=== PATIENT | female | born 1970 | race Caucasian/White ===

== ENCOUNTER 2016-06-02 14:25 | Emergency (ER) | payer OTHER | END 2016-06-02 19:20 | disposition left against medical advice (07) | LOC: FER 14:25 | DX: M54.6 Pain in thoracic spine (principal); Z53.8 Procedure and treatment not carried out for other reasons ==

== ENCOUNTER 2016-06-04 19:36 | Emergency (ER) | payer OTHER ==
[2016-06-04 21:59] LABS: BILIRUBIN NEGATIVE (NEGATIVE); BLOOD 3+ Ery/uL (NEGATIVE); GLUCOSE (U) NORMAL (NORMAL); KETONE (U) 1+ (SMALL) mg/dL (NEGATIVE); LEUKOCYTES 2+ Leu/uL (NEGATIVE); NITRITE POSITIVE (NEGATIVE); PROTEIN 3+ mg/dL (NEGATIVE); SPECIFIC GRAVITY >=1.030 (1.001-1.030)
[2016-06-04 22:00] LABS: CLARITY TURBID (CLEAR); COLOR RED (YELLOW)
[2016-06-04 22:06] LABS: BACTERIA 4+; CALCIUM OXALATE CRYSTALS LARGE; SQUAMOUS EPITHELIAL CELLS 20-50; URINARY RBC TNTC
[2016-06-04 22:07] LABS: URINARY WBC 20-50
== END 2016-06-04 23:38 | disposition home or self-care (01) ==
LOC: FER 19:36
PROVIDERS: Emergency Medicine Emergency Medical Services
DX: N30.00 Acute cystitis without hematuria (principal); I10 Essential (primary) hypertension; F32.9 Major depressive disorder, single episode, unspecified; F17.290 Nicotine dependence, other tobacco product, uncomplicated; Z79.899 Other long term (current) drug therapy; Z88.0 Allergy status to penicillin; Z88.2 Allergy status to sulfonamides
CPT/HCPCS: 81001; 87077; 87088; 87186; 87210; 99284

== ENCOUNTER 2020-12-23 23:41 | Emergency (ER) | payer OTHER ==
[2020-12-24 00:32] LABS: BILIRUBIN NEGATIVE (NEGATIVE); BLOOD TRACE-INTACT Ery/uL (NEGATIVE); COLOR YELLOW (YELLOW); GLUCOSE (U) NORMAL (NORMAL); LEUKOCYTES 1+ Leu/uL (NEGATIVE); NITRITE POSITIVE (NEGATIVE); PROTEIN NEGATIVE (NEGATIVE); UROBILINOGEN 0.2 mg/dL (0.2-1.0)
[2020-12-24 00:35] LABS: CLARITY HAZY (CLEAR)
[2020-12-24 00:37] LABS: BACTERIA 4+; URINARY WBC 20-50
[2020-12-24 01:35] LABS: HCT 42.9 % (37.0-47.0); HGB 14.4 g/dl (12.5-16.0); MCH 27.7 pg (25.0-31.0); MCHC 33.6 g/dL (32.0-36.0); MCV 82.5 fL (78.0-100.0); MPV 10.7 fL (6.0-9.5); RBC 5.2 M/uL (4.20-5.40); RDW 12.5 % (11.5-14.0); WBC 15.6 K/uL (4.0-10.5)
[2020-12-24 01:52] LABS: BUN/CREAT RATIO (CALC) 16.4 RATIO; CREATININE 0.61 mg/dL (0.51-0.95); POTASSIUM 3.2 mmol/L (3.5-5.1)
[2020-12-24] MEDS ORDERED: CIPRO250 MG PO (03:16)
[2020-12-24] MEDS ORDERED: OXY-IR 5MG5 MG PO (03:16)
[2020-12-24] MEDS ORDERED: ZOFRAN4 M1 PO (03:16)
[2020-12-24] MEDS ORDERED: FLOMAX0.4 MG PO (03:16)
== END 2020-12-24 03:35 | disposition home or self-care (01) ==
LOC: FER 23:41
PROVIDERS: Emergency Medicine
DX: N13.2 Hydronephrosis with renal and ureteral calculous obstruction (principal); N39.0 Urinary tract infection, site not specified; Z88.0 Allergy status to penicillin; Z88.2 Allergy status to sulfonamides
CPT/HCPCS: 36415; 80048; 81001; 87076; 87088; 87186; 96372; J0696; J1885; J7030

== ENCOUNTER 2021-09-22 23:48 | Emergency (ER) | payer OTHER ==
[~2021-09-22 23:48] MED LIST: CIPRO250 MG PO; FLOMAX0.4 MG PO; OXY-IR 5MG5 MG PO; ZOFRAN4 M1 PO
[2021-09-23 00:28] LABS: BASOPHIL 0.4 % (0-2); EOSINOPHIL 0.4 % (0-5); HCT 41.6 % (37.0-47.0); HGB 13.9 g/dl (12.5-16.0); LYMPHOCYTE 10.1 % (15-48); MCH 27.5 pg (25.0-31.0); MCHC 33.4 g/dL (32.0-36.0); MCV 82.2 fL (78.0-100.0); MONOCYTE 5.2 % (0-12); MPV 10.8 fL (6.0-9.5); NEUTROPHIL 83.6 % (41-80); NRBC 0; PLT 190 K/uL (150-400); RBC 5.06 M/uL (4.20-5.40); RDW 12.2 % (11.5-14.0); WBC 10.3 K/uL (4.0-10.5)
[2021-09-23 00:45] LABS: BILIRUBIN - TOTAL 0.8 mg/dL (0.2-1.0); BUN/CREAT RATIO (CALC) 15.1 RATIO; CREATININE 0.73 mg/dL (0.51-0.95); GLOBULIN (CALCULATION) 3.1 g/dL; POTASSIUM 3.2 mmol/L (3.5-5.1); TOTAL PROTEIN 7.1 g/dL (6.4-8.2)
[2021-09-23 00:53] LABS: BILIRUBIN 1+ mg/dL (NEGATIVE); BLOOD 3+ Ery/uL (NEGATIVE); GLUCOSE (U) NORMAL (NORMAL); LEUKOCYTES TRACE Leu/uL (NEGATIVE); NITRITE NEGATIVE (NEGATIVE); PROTEIN 1+ mg/dL (NEGATIVE); pH 6.5 (5.0-9.0)
[2021-09-23 00:54] LABS: CLARITY CLOUDY (CLEAR); COLOR AMBER (YELLOW)
[2021-09-23 01:00] LABS: BACTERIA TRACE; CALCIUM OXALATE CRYSTALS TRACE; SQUAMOUS EPITHELIAL CELLS RARE; URINARY RBC TNTC; URINARY WBC RARE
[2021-09-23] MEDS ORDERED: NORCO 5-325 TA1 EACH PO (02:05)
[2021-09-23] MEDS ORDERED: ONDANSETRON ODT4 MG PO (02:05)
== END 2021-09-23 02:30 | disposition home or self-care (01) ==
LOC: FER 23:48
PROVIDERS: Emergency Medicine
DX: N13.2 Hydronephrosis with renal and ureteral calculous obstruction (principal); Z88.0 Allergy status to penicillin; Z88.2 Allergy status to sulfonamides
CPT/HCPCS: 36415; 80053; 81001; 85025; 87088; J1885; J7030

== ENCOUNTER 2021-10-07 06:24 | Emergency (ER) | payer OTHER ==
[~2021-10-07 06:24] MED LIST changes: +NORCO 5-325 TA1 EACH PO; +ONDANSETRON ODT4 MG PO
[2021-10-07 06:41] LABS: BASOPHIL 0.5 % (0-2); EOSINOPHIL 2.2 % (0-5); HCT 42.8 % (37.0-47.0); LYMPHOCYTE 23.6 % (15-48); MCH 27.6 pg (25.0-31.0); MCHC 32.7 g/dL (32.0-36.0); MCV 84.3 fL (78.0-100.0); MONOCYTE 4.8 % (0-12); MPV 10.4 fL (6.0-9.5); NEUTROPHIL 68.6 % (41-80); NRBC 0; PLT 263 K/uL (150-400); RBC 5.08 M/uL (4.20-5.40); RDW 12.7 % (11.5-14.0); WBC 7.7 K/uL (4.0-10.5)
[2021-10-07 06:58] LABS: ALBUMIN 3.8 g/dL (3.4-5.0); BILIRUBIN - TOTAL 0.2 mg/dL (0.2-1.0); BUN/CREAT RATIO (CALC) 18.2 RATIO; CREATININE 0.77 mg/dL (0.51-0.95); GLOBULIN (CALCULATION) 3.3 g/dL; POTASSIUM 3.3 mmol/L (3.5-5.1); TOTAL PROTEIN 7.1 g/dL (6.4-8.2)
[2021-10-07 08:11] LABS: BILIRUBIN NEGATIVE (NEGATIVE); BLOOD 3+ Ery/uL (NEGATIVE); CLARITY CLEAR (CLEAR); COLOR YELLOW (YELLOW); GLUCOSE (U) TRACE mg/dL (NORMAL); LEUKOCYTES 2+ Leu/uL (NEGATIVE); NITRITE NEGATIVE (NEGATIVE); PROTEIN NEGATIVE (NEGATIVE); UROBILINOGEN 0.2 mg/dL (0.2-1.0); pH 6.5 (5.0-9.0)
[2021-10-07 08:19] LABS: BACTERIA TRACE; URINARY RBC 20-50
[2021-10-07 08:20] LABS: CALCIUM OXALATE CRYSTALS TRACE; STARCH GRANULES PRESENT
[2021-10-07] MEDS ORDERED: MACROBID100 MG PO (09:34)
== END 2021-10-07 09:51 | disposition home or self-care (01) ==
LOC: FER 06:24
PROVIDERS: Emergency Medicine
DX: N13.2 Hydronephrosis with renal and ureteral calculous obstruction (principal); Z28.310 Unvaccinated for COVID-19; Z88.0 Allergy status to penicillin; Z88.2 Allergy status to sulfonamides
CPT/HCPCS: 36415; 80053; 81001; 83735; 85025; J1170; J1885; J2405; J2550; J7030

== ENCOUNTER 2021-10-12 11:45 | Emergency (ER) | payer OTHER ==
[~2021-10-12 11:45] MED LIST changes: +MACROBID100 MG PO
[2021-10-12 13:01] LABS: BILIRUBIN 3+ mg/dL (NEGATIVE); BLOOD 3+ Ery/uL (NEGATIVE); GLUCOSE (U) TRACE mg/dL (NORMAL); LEUKOCYTES 3+ Leu/uL (NEGATIVE); NITRITE POSITIVE (NEGATIVE); PROTEIN 3+ mg/dL (NEGATIVE); pH 6.5 (5.0-9.0)
[2021-10-12 13:06] LABS: BILIRUBIN - TOTAL 0.7 mg/dL (0.2-1.0); BUN/CREAT RATIO (CALC) 26.1 RATIO; CREATININE 0.69 mg/dL (0.51-0.95); GLOBULIN (CALCULATION) 3.5 g/dL; POTASSIUM 3.1 mmol/L (3.5-5.1); TOTAL PROTEIN 7.5 g/dL (6.4-8.2)
[2021-10-12 13:13] LABS: CLARITY CLOUDY (CLEAR); COLOR BROWN (YELLOW)
[2021-10-12 13:30] LABS: BASOPHIL 0.4 % (0-2); EOSINOPHIL 0.4 % (0-5); HCT 41.2 % (37.0-47.0); HGB 14.1 g/dl (12.5-16.0); LYMPHOCYTE 8.1 % (15-48); MCHC 34.2 g/dL (32.0-36.0); MCV 81.9 fL (78.0-100.0); MONOCYTE 5.1 % (0-12); MPV 10.5 fL (6.0-9.5); NEUTROPHIL 85.7 % (41-80); NRBC 0; PLT 290 K/uL (150-400); RBC 5.03 M/uL (4.20-5.40); RDW 12.7 % (11.5-14.0); WBC 13.4 K/uL (4.0-10.5)
[2021-10-12 13:31] LABS: URINARY RBC TNTC
[2021-10-12] MEDS ORDERED: K-TAB ER20 MEQ PO (15:11)
[2021-10-12] MEDS ORDERED: LEVAQUIN500 MG PO (15:11)
== END 2021-10-12 16:22 | disposition home or self-care (01) ==
LOC: FER 11:45
PROVIDERS: Emergency Medicine
DX: N13.6 Pyonephrosis (principal); E87.6 Hypokalemia; E03.9 Hypothyroidism, unspecified; Z88.0 Allergy status to penicillin; Z88.2 Allergy status to sulfonamides; Z79.890 Hormone replacement therapy; Z28.310 Unvaccinated for COVID-19
CPT/HCPCS: 36415; 80053; 81001; 83690; 85025; 87088; J0713; J1885; J2405; J7030